=== PATIENT | male | born 1970 | race American Indian/Alaskan Native ===

== ENCOUNTER 2024-12-02 10:36 | Emergency (ER) | payer OTHER ==
[~2024-12-02] VITALS: Ht 175.3 cm; Wt 101.2 kg
[2024-12-02 11:19] LABS: HEMATOCRIT 29.9 % (35.0-50.0); HEMOGLOBIN 9.4 g/dL (12.0-18.0); MCH 23.6 (27-36); MCHC 31.5 g/dl (30-36); MCV 74.9 fl (81-99); PLATELET COUNT 79 K/uL (140-440); RBC 3.99 M/ul (4.3-5.7); RDW 21.8 (10.5-15.0)
[2024-12-02 11:39] LABS: ALBUMIN 2.8 g/dL (3.4-5.0); ALBUMIN/GLOBULIN RATIO 0.68 (1.1-2.4); ANION GAP 14.1 (7-21); BILIRUBIN, TOTAL 2.2 ng/dL (0.2-1.0); BUN/CREATININE RATIO 12.5 (6.0-28.6); CREATININE, SERUM 0.72 mg/dL (0.70-1.30); POTASSIUM 3.1 mmol/L (3.5-5.1); PROTEIN, TOTAL 6.9 g/dL (6.4-8.2)
[2024-12-02 11:58] LABS: BANDS, MANUAL DIFF 2; BASOPHILS, MANUAL DIFF 1; LYMPHOCYTES, MANUAL DIFF 13; MONOCYTES, MANUAL DIFF 25; NEUTROPHILS, MANUAL DIFF 59
[2024-12-02 12:20] LABS: BILIRUBIN, URINE POSITIVE (negative); BLOOD/HGB, URINE TRACE-I (Negative); KETONE, URINE TRACE (Negative); LEUK ESTERASE, URINE TRACE (negative); NITRITE, URINE NEGATIVE (negative)
[2024-12-02 12:25] LABS: BACTERIA, URINE RARE /hpf (negative); CASTS, URINE NONE SEEN \\lpf; COLLECTION TYPE, URINE CLEAN CATCH; CRYSTALS, URINE NONE SEEN (0-1+); EPITHELIAL CELLS, URINE SQUAMOUS 1+ /lpf (0-1+); RED BLOOD CELLS, URINE 0-1 /hpf (0-5); REFLEX CULTURE, URINE No (No)
[2024-12-02 12:47] LABS: INFLUENZA B NAA NEGATIVE (NEGATIVE); RESPIRATORY SYNCYTIAL VIR NAA NEGATIVE (NEGATIVE)
[2024-12-02] MEDS ORDERED: ATIVAN1 MG PO (15:40)
[2024-12-02 15:48] VITALS: BP 176/94
== END 2024-12-02 15:48 | disposition home or self-care (01) ==
LOC: ED 10:36
PROVIDERS: Emergency Medicine
DX: B34.9 Viral infection, unspecified (principal); I10 Essential (primary) hypertension
CPT/HCPCS: 36415; 80053; 81001; 83735; 85025; 87502; 99284; U0002